=== PATIENT | male | born 1975 | race Caucasian/White ===

== ENCOUNTER 2018-09-11 22:39 | Emergency (ER) | payer MEDICAID ==
[2018-09-12] MEDS ORDERED: cefTRIAXone 1 GM Vial IM ONE (00:39)
[2018-09-12] MEDS ORDERED: Sulfamethoxazole/Trimethoprim 800-160 MG Tab PO ONE (00:40)
--- NOTE | 2018-09-12 00:47 | EDM.PDOC ---
ED HPI GENERAL MEDICAL PROBLEM - General Chief Complaint: Skin Complaint Stated Complaint: INFECTION IN RIGHT KNEE Time Seen by Provider: 09/12/18 00:30 Source of Information: Reports: Patient, Old Records, RN History Limitations: Reports: No Limitations - History of Present Illness INITIAL COMMENTS - FREE TEXT/NARRATIVE: 43 yo male with progressive redness and increased warmth to the skin around the R knee. No pain with walking. No fever or chills. Has had skin infections before. Lives locally. Started when he scratched the area. Onset: Gradual Onset Date: 09/11/18 Duration: Hour(s):, Getting Worse Location: Reports: Lower Extremity, Right Quality: Reports: Dull Severity: Mild Improves with: Reports: None Worsens with: Reports: Other (time) Context: Reports: Other (see HPI) Associated Symptoms: Reports: Rash (redness of R knee). 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 (see below) (none) - Related Data Allergies Allergy/AdvReac Type Severity Reaction Status Date / Time No Known Allergies Allergy Verified 09/12/18 00:30 Home Meds: Home Meds Ibuprofen 800 mg PO Q6H PRN 09/12/18 [History] Sulfamethoxazole/Trimethoprim [Bactrim Ds Tablet] 1 each PO Q12H #14 tablet [Rx] cephALEXin [Cephalexin] 500 mg PO Q6H #30 capsule 09/12/18 [Rx] Past Medical History - Past Surgical History HEENT Surgical History: Reports: Oral Surgery Musculoskeletal Surgical History: Reports: Other (See Below) Other Musculoskeletal Surgeries/Procedures:: tendon surg on hand Social & Family History - Tobacco Use Smoking Status *Q: Current Every Day Smoker Years of Tobacco use: 16 Packs/Tins Daily: 0.5 Used Tobacco, but Quit: No Second Hand Smoke Exposure: Yes - Caffeine Use Caffeine Use: Reports: Soda - Recreational Drug Use Recreational Drug Use: No ED ROS GENERAL - Review of Systems Review Of Systems: See Below Constitutional: Reports: No Symptoms Musculoskeletal: Reports: No Symptoms Skin: Reports: Erythema (around R knee), Change in Color. Denies: Pruritis, Rash Neurological: Reports: No Symptoms ED EXAM, SKIN/RASH Exam: See Below Exam Limited By: No Limitations General Appearance: Alert, WD/WN, No Apparent Distress Extremities: Normal Inspection, Normal Range of Motion, Non-Tender, No Pedal Edema Neurological: Alert, Oriented, CN II-XII Intact, Normal Cognition, No Motor/ Sensory Deficits Skin: Warm, Dry, Intact, No Rash, Erythema (around R knee), Increased Warmth (R knee) Location, Skin: Lower Extremity, Right (knee) Characteristics: Erythematous Associated features: Warmth, Inflammation. No: Tenderness, Swelling, Induration Course - Vital Signs Last Recorded V/S: Last Vital Signs Temp 36.1 C 09/12/18 00:24 Pulse 67 09/12/18 00:24 Resp 16 09/12/18 00:24 BP 119/73 09/12/18 00:24 Pulse Ox 98 09/12/18 00:24 - Orders/Labs/Meds Meds: Medications Discontinued Medications Generic Name Dose Route Start Last Admin Trade Name Betty PRN Reason Stop Dose Admin Ceftriaxone Sodium 1 gm 09/12/18 00:39 Rocephin IM 09/12/18 00:40 ONETIME ONE Trimethoprim/Sulfamethoxazole 1 tab 09/12/18 00:40 Septra Ds PO 09/12/18 00:41 ONETIME ONE Departure - Departure Time of Disposition: 01:05 Disposition: Home, Self-Care 01 Condition: Fair Clinical Impression: Cellulitis of right knee - Discharge Information *PRESCRIPTION DRUG MONITORING PROGRAM REVIEWED*: No *COPY OF PRESCRIPTION DRUG MONITORING REPORT IN PATIENT GEORGE: No Prescriptions: cephALEXin [Cephalexin] 500 mg PO Q6H #30 capsule Sulfamethoxazole/Trimethoprim [Bactrim Ds Tablet] 1 each PO Q12H #14 tablet Referrals: Smith Gamble [employer] PROFESSIONAL [Primary Care Provider] - Additional Instructions: Apply warm, moist compresses to this area several times a day. Take acetaminophen as needed for pain relief. Take the cephalexin and TMP/SMZ as directed. Recheck in the clinic early in the week.
== END 2018-09-12 01:05 | disposition home or self-care (01) ==
LOC: JP.ED 22:39
DX: L03.115 Cellulitis of right lower limb (principal); F17.210 Nicotine dependence, cigarettes, uncomplicated; Z98.890 Other specified postprocedural states
CPT/HCPCS: 96372; 99282; A9270; J0696; J2001